=== PATIENT | male | born 1985 | race Caucasian/White ===

== ENCOUNTER 2017-12-07 14:05 | Emergency (ER) | payer OTHER ==
[2017-12-07] MEDS ORDERED: ONDANSETRON HCL INJ/PF 4 MG/2 ML SDV IV ONE (15:59)
[2017-12-07] MEDS ORDERED: NORMAL SALINE 1000 ML 1,000 ML IV ONE (15:59)
[2017-12-07] MEDS ORDERED: MORPHINE SULFATE 10 MG/ML INJ IV ONE (15:59)
--- NOTE | 2017-12-07 16:00 | ER Document Report ---
ED Medical Screen (RME) - General Chief Complaint: Abdominal Pain Stated Complaint: ABDOMINAL PAIN Time Seen by Provider: 12/07/17 15:58 Notes: pt has one day of bilat lq abdominal pain with vomiting TRAVEL OUTSIDE OF THE [place] IN LAST 30 DAYS: No - Related Data Allergies/Adverse Reactions: No Known Allergies Allergy (Unverified 12/07/17 14:15) Past Medical History - Social History Chew tobacco use (# tins/day): No Frequency of alcohol use: None Drug Abuse: None Renal/ Medical History: Denies: Hx Peritoneal Dialysis GI Medical History: Reports: Hx Ulcer - Immunizations Hx Diphtheria, Pertussis, Tetanus Vaccination: Yes Physical Exam - Vital signs Vitals: Temp Pulse Resp BP Pulse Ox 99.3 F 89 22 H 122/73 96 12/07/17 14:32 12/07/17 14:32 12/07/17 14:32 12/07/17 14:32 12/07/17 14:32 Course - Vital Signs Vital signs: Temp Pulse Resp BP Pulse Ox 99.3 F 89 22 H 122/73 96 12/07/17 14:32 12/07/17 14:32 12/07/17 14:32 12/07/17 14:32 12/07/17 14:32
--- NOTE | 2017-12-07 16:58 | RADIOLOGY REPORT (SQ) ---
EXAM DESCRIPTION: CT ABD/PELVIS WITH IV ONLY COMPLETED DATE/TIME: 12/07/2017 4:42 pm REASON FOR STUDY: bilat lq pain/vomiting COMPARISON: None. TECHNIQUE: CT scan of the abdomen and pelvis performed using helical scanning technique with dynamic intravenous contrast injection. No oral contrast. Images reviewed with lung, soft tissue, and bone windows. Reconstructed coronal and sagittal MPR images reviewed. Delayed images for evaluation of the urinary system also acquired. All images stored on PACS. All CT scanners at this facility use dose modulation, iterative reconstruction, and/or weight based d osing when appropriate to reduce radiation dose to as low as reasonably achievable (ALARA). [facility]: Dose Right [facility]: CareDose [facility]: Dose Right [facility]: Teradose 4D [facility]: MedPageToday CONTRAST TYPE AND DOSE: contrast/concentration: Isovue 370.00 mg/ml; Total Contrast Delivered: 100.0 ml; Total Saline Delivered: 70.0 ml RENAL FUNCTION: None required. The patient is less than 50 years old. RADIATION DOSE: CT Rad equipment meets quality standard of care and radiation dose reduction techniq ues were employed. CTDIvol: 19.8 - 20.5 mGy. DLP: 2416 mGy-cm.. LIMITATIONS: Patient motion. FINDINGS: LOWER CHEST: No significant findings. No nodules or infiltrates. LIVER: Normal size. No masses. No dilated ducts. SPLEEN: Normal size. No focal lesions. PANCREAS: No masses. No significant calcifications. No adjacent inflammation or peripancreatic fluid collections. Pancreatic duct not dilated. GALLBLADDER: No identified stones by CT criteria. No inflammatory changes to suggest cholecystitis. ADRENAL GLANDS: No significant masses or asymmetry. RIGHT KIDNEY AND URETER: No solid masses. No significant calcifications. No hydronephrosis or hyd roureter. LEFT KIDNEY AND URETER: No solid masses. No significant calcifications. No hydronephrosis or hydr oureter. AORTA AND VESSELS: No aneurysm. RETROPERITONEUM: No retroperitoneal adenopathy, hemorrhage or masses. BOWEL AND PERITONEAL CAVITY: No masses or inflammatory changes. No free fluid or peritoneal masses. APPENDIX: Not visualized. PELVIS: No mass. No free fluid. Normal bladder. ABDOMINAL WALL: Small umbilical hernia. BONES: Approximately 30% height loss at L2. No significant retropulsion. Spondylolysis L5-S1. OTHER: No other significant finding. IMPRESSION: Technical limitations due to patient motion. Compression fracture L2 of uncertain chron icity but probably chronic. Consider follow-up MRI or bone scan when the patient is more stable. TECHNICAL DOCUMENTATION: JOB ID: [id number] Quality ID # [id number]: Final reports with documentation of one or more dose reduction techniques (e.g., Au tomated exposure control, adjustment of the mA and/or kV according to patient size, use of iterative reconstruction technique) 2010 [employer]- All Rights Reserved
[2017-12-07 17:00] LABS: HEMATOCRIT 48.1 % (37.9-51.0); HEMOGLOBIN 16.5 g/dL (13.5-17.0); MEAN CORPUSCULAR HEMOGLOBIN 28.7 pg (27.0-33.4); MEAN CORPUSCULAR HGB CONC 34.3 g/dL (32.0-36.0); MEAN CORPUSCULAR VOLUME 84 fl (80-97); PLATELET COUNT 220 10^3/uL (150-450); RED BLOOD COUNT 5.76 10^6/uL (4.35-5.55); RED CELL DISTRIBUTION WIDTH 12.7 % (11.5-14.0); WHITE BLOOD COUNT 15.2 10^3/uL (4.0-10.5)
[2017-12-07 17:01] LABS: APPEARANCE,URINE CLEAR; BILIRUBIN,URINE NEGATIVE (NEGATIVE); COLOR,URINE YELLOW; GLUCOSE, URINE NEGATIVE (NEGATIVE); KETONES,URINE NEGATIVE (NEGATIVE); LEUKOCYTE ESTERASE,URINE NEGATIVE (NEGATIVE); NITRITE,URINE NEGATIVE (NEGATIVE); PROTEIN,URINE NEGATIVE (NEGATIVE); URINE SPECIFIC GRAVITY 1.034
[2017-12-07 17:16] LABS: ALANINE AMINOTRANSFERASE 38 U/L (21-72); ALBUMIN 4.3 g/dL (3.5-5.0); ALKALINE PHOSPHATASE 103 U/L (38-126); ANION GAP 12 (5-19); ASPARTATE AMINO TRANSFERASE 25 U/L (17-59); BILIRUBIN,DIRECT 0.4 mg/dL (0.0-0.4); BILIRUBIN,TOTAL 1.1 mg/dL (0.2-1.3); BLOOD UREA NITROGEN 22 mg/dL (7-20); CALCIUM 9.9 mg/dL (8.4-10.2); CARBON DIOXIDE 24 mmol/L (22-30); CHLORIDE 104 mmol/L (98-107); GLUCOSE 108 mg/dL (75-110); LIPASE 56.5 U/L (23-300); POTASSIUM 4.5 mmol/L (3.6-5.0); SODIUM 139.8 mmol/L (137-145); TOTAL PROTEIN 7.3 g/dL (6.3-8.2)
[2017-12-07 17:21] LABS: ABSOLUTE LYMPHOCYTES# (MANUAL) 0.8 10^3/uL (0.5-4.7); ABSOLUTE MONOCYTES # (MANUAL) 0.9 10^3/uL (0.1-1.4); ABSOLUTE NEUTROPHILS# (MANUAL) 13.5 10^3/uL (1.7-8.2); BASOPHILS % (MANUAL) 0 % (0-2); EOSINOPHILS % (MANUAL) 0 % (0-6); LYMPHOCYTES % (MANUAL) 5 % (13-45); MONOCYTES % (MANUAL) 6 % (3-13); SEGMENTED NEUTROPHILS % (MAN) 89 % (42-78); TOTAL CELLS COUNTED 100
[2017-12-07 17:22] LABS: PLATELET COMMENT ADEQUATE; TOXIC GRANULATION SLIGHT
[2017-12-07] MEDS ORDERED: RINGERS SOLUTION,LACTATED 1,000 ML IV ONE (19:28)
--- NOTE | 2017-12-07 19:34 | ER Document Report ---
ED General - General Chief Complaint: Abdominal Pain Stated Complaint: ABDOMINAL PAIN Time Seen by Provider: 12/07/17 15:58 Information source: Patient TRAVEL OUTSIDE OF THE [place] IN LAST 30 DAYS: No - HPI Patient complains to provider of: Vomiting diarrhea and abdominal pain Onset: This morning Quality of pain: Cramping Severity: Mild Associated symptoms: Diarrhea, Nausea, Vomiting. denies: Body/muscle aches, Chest pain, Chills, Nonproductive cough, Productive cough, Earache, Fever, Headache, Hoarseness, Hurts to breath, Rhinnorhea, Shortness of breath, Sore throat Relieved by: Denies Similar symptoms previously: No Recently seen / treated by doctor: No Notes: 32-year-old male states that he has had abdominal pain that is diffuse in nature, nausea, vomiting and diarrhea that started this morning at around 7 AM. He states his 2-year-old child has been sick with the same thing in the last few days. Patient denies fevers. - Related Data Allergies/Adverse Reactions: No Known Allergies Allergy (Unverified 12/07/17 14:15) Past Medical History - General Information source: Patient - Social History Smoking Status: Current Every Day Smoker Chew tobacco use (# tins/day): No Frequency of alcohol use: None Drug Abuse: None Lives with: Family Family History: Reviewed & Not Pertinent Patient has suicidal ideation: No Patient has homicidal ideation: No - Past Medical History Cardiac Medical History: Reports: None Pulmonary Medical History: Reports: None EENT Medical History: Reports: None Neurological Medical History: Reports: Other - Lumbar radiculopathy Endocrine Medical History: Reports: None Renal/ Medical History: Reports: None. Denies: Hx Peritoneal Dialysis Malignancy Medical History: Reports None GI Medical History: Reports: Hx Ulcer, Other - Loose stools and fecal incontinence at times due to his lumbar injury Musculoskeltal Medical History: Reports Hx Muscle Weakness - Lateral lower extremities chronic in nature Skin Medical History: Reports Other - Cyst left wrist history of Psychiatric Medical History: Reports: None Traumatic Medical History: Reports: Hx Spine Fracture - L2 fracture Infectious Medical History: Reports: None Past Surgical History: Reports: Other - Movable ganglion cyst left wrist - Immunizations Hx Diphtheria, Pertussis, Tetanus Vaccination: Yes Review of Systems - Review of Systems Constitutional: See HPI EENT: See HPI Cardiovascular: No symptoms reported Respiratory: No symptoms reported Gastrointestinal: See HPI Genitourinary: No symptoms reported Male Genitourinary: No symptoms reported Musculoskeletal: No symptoms reported, See HPI, Back pain - Chronic Skin: No symptoms reported Hematologic/Lymphatic: No symptoms reported Neurological/Psychological: No symptoms reported Physical Exam - Vital signs Vitals: Temp Pulse Resp BP Pulse Ox 99.3 F 89 22 H 122/73 96 12/07/17 14:32 12/07/17 14:32 12/07/17 14:32 12/07/17 14:32 12/07/17 14:32 - Notes Notes: PHYSICAL EXAMINATION: GENERAL: Well-appearing, well-nourished and in no acute distress. HEAD: Atraumatic, normocephalic. EYES: Pupils equal round and reactive to light, extraocular movements intact, sclera anicteric, conjunctiva are normal. ENT: Nares patent, oropharynx clear without exudates. Dry mucous membranes. NECK: Normal range of motion, supple without lymphadenopathy LUNGS: Breath sounds clear to auscultation bilaterally and equal. No wheezes rales or rhonchi. HEART: Regular rate and rhythm without murmurs ABDOMEN: Soft, nontender, nondistended abdomen. No guarding, no rebound. No masses appreciated. Musculoskeletal: Normal range of motion, no pitting or edema. No cyanosis. NEUROLOGICAL: Cranial nerves grossly intact. Normal speech, normal gait. Normal sensory. Mildly decreased bilateral lower extremity muscle strength. PSYCH: Normal mood, normal affect. SKIN: Warm, Dry, normal turgor, no rashes or lesions noted. Course - Re-evaluation Re-evalutation: 12/07/17 19:34 Labs- All tests 24 hr 12/07/17 12/07/17 12/07/17 16:00 16:25 16:25 WBC 15.2 H RBC 5.76 H Hgb 16.5 Hct 48.1 MCV 84 MCH 28.7 MCHC 34.3 RDW 12.7 Plt Count 220 Total Counted 100 Seg Neutrophils % Not Reportable Seg Neuts % (Manual) 89 H Lymphocytes % Not Reportable Lymphocytes % (Manual) 5 L Monocytes % Not Reportable Monocytes % (Manual) 6 Eosinophils % Not Reportable Eosinophils % (Manual) 0 Basophils % Not Reportable Basophils % (Manual) 0 Absolute Neutrophils Not Reportable Abs Neuts (Manual) 13.5 H Absolute Lymphocytes Not Reportable Abs Lymphs (Manual) 0.8 Absolute Monocytes Not Reportable Abs Monocytes (Manual) 0.9 Absolute Eosinophils Not Reportable Absolute Eos (Manual) 0.0 Absolute Basophils Not Reportable Abs Basophils (Manual) 0.0 Toxic Granulation SLIGHT Platelet Comment ADEQUATE Sodium 139.8 Potassium 4.5 Chloride 104 Carbon Dioxide 24 Anion Gap 12 BUN 22 H Creatinine 1.05 Est GFR ( Amer) > 60 Est GFR (Non-Af Amer) > 60 Glucose 108 Calcium 9.9 Total Bilirubin 1.1 Direct Bilirubin 0.4 Neonat Total Bilirubin Not Reportable Neonat Direct Bilirubin Not Reportable Neonat Indirect Bili Not Reportable AST 25 ALT 38 Alkaline Phosphatase 103 Total Protein 7.3 Albumin 4.3 Lipase 56.5 Urine Color YELLOW Urine Appearance CLEAR Urine pH 6.0 Ur Specific [place] 1.034 Urine Protein NEGATIVE Urine Glucose (UA) NEGATIVE Urine Ketones NEGATIVE Urine Blood NEGATIVE Urine Nitrite NEGATIVE Urine Bilirubin NEGATIVE Urine Urobilinogen 2.0 H Ur Leukocyte Esterase NEGATIVE Urine WBC (Auto) 1 Urine RBC (Auto) 1 Urine Mucus (Auto) FEW Urine Ascorbic Acid NEGATIVE Abdomen/Pelvis CT 12/07/17 15:58 IMPRESSION: Technical limitations due to patient motion. Compression fracture L2 of uncertain chronicity but probably chronic. Consider follow-up MRI or bone scan when the patient is more stable. 12/07/17 19:35 Did discuss patient's CAT scan findings with him. I told him that appendicitis was not completely ruled out as the appendix was not visualized. I told him that his clinical examination and his CT does not point in that direction however return to the emergency department if he has high fevers right lower quadrant pain intractable vomiting or any other concerns. 12/07/17 20:40 PT. tolerated 2 cans of james edmundo without difficulty - Vital Signs Vital signs: Temp Pulse Resp BP Pulse Ox 97.8 F 86 18 107/65 97 12/07/17 19:35 12/07/17 19:35 12/07/17 19:35 12/07/17 19:35 12/07/17 19:35 - Laboratory Result Diagrams: 12/07/17 16:25 12/07/17 16:25 Laboratory results interpreted by me: 12/07/17 12/07/17 12/07/17 16:00 16:25 16:25 WBC 15.2 H RBC 5.76 H Seg Neuts % (Manual) 89 H Lymphocytes % (Manual) 5 L Abs Neuts (Manual) 13.5 H BUN 22 H Urine Urobilinogen 2.0 H Discharge - Discharge Clinical Impression: Abdominal pain, Vomiting, Diarrhea Disposition: HOME, SELF-CARE Instructions: Abdominal Pain ([facility]), Antinausea Medication ([facility]), Diarrhea, Nonspecific ([facility]), Intravenous (IV) Fluids ([facility]), Vomiting ([facility]) Additional Instructions: Follow up with your physician tomorrow for further care or return to the ED IMMEDIATELY if symptoms worsen or new concerns occur. If you cannot afford to follow up with your primary care physician a list of low cost clinics have been provided at the end of your discharge papers as well. We discussed the CAT scan today did not visualize her appendix. It did not show any inflammation or signs of an appendicitis either. If you have pain that localizes to the right lower portion of your abdomen or if you have high fevers or vomiting that will not stop please return to the emergency department immediately. Prescriptions: Ondansetron [Zofran Odt 4 mg Tablet] 1 - 2 tab PO Q4H PRN #15 tab.rapdis PRN Reason: For Nausea/Vomiting
[2017-12-07 22:07] VITALS: BP 118/68
== END 2017-12-07 21:49 | disposition home or self-care (01) ==
LOC: ER 14:05
DX: R10.9 Unspecified abdominal pain (principal); R11.2 Nausea with vomiting, unspecified; R19.7 Diarrhea, unspecified; F17.200 Nicotine dependence, unspecified, uncomplicated
CPT/HCPCS: 99284; 96361; 96374; 96375; 36415; 83690; 85025; 80053; 81001; 74177; J2270; J2405; J7030; J7120

== ENCOUNTER 2018-09-25 18:10 | Emergency (ER) | payer OTHER ==
[2018-09-25 18:29] VITALS: BP 117/65
--- NOTE | 2018-09-25 19:52 | RADIOLOGY REPORT (SQ) ---
EXAM DESCRIPTION: CHEST 2 VIEWS COMPLETED DATE/TIME: 09/25/2018 7:27 pm REASON FOR STUDY: cough congestion COMPARISON: None. EXAM PARAMETERS: NUMBER OF VIEWS: two views TECHNIQUE: Digital Frontal and Lateral radiographic views of the chest acquired. RADIATION DOSE: NA LIMITATIONS: none FINDINGS: LUNGS AND PLEURA: No opacities, masses or pneumothorax. No pleural effusion. MEDIASTINUM AND HILAR STRUCTURES: No masses or contour abnormalities. HEART AND VASCULAR STRUCTURES: Heart normal size. No evidence for failure. BONES: No acute findings. HARDWARE: None in the chest. OTHER: No other significant finding. IMPRESSION: NO ACUTE RADIOGRAPHIC FINDING IN THE CHEST. TECHNICAL DOCUMENTATION: JOB ID: [id number] [employer]- All Rights Reserved Reading location - IP/workstation name: [email or web address]
[2018-09-25] MEDS ORDERED: IBUPROFEN 800 MG TABLET PO ONE (20:07)
[2018-09-25] MEDS ORDERED: GUAIFENESIN 600 MG TABLET.SA PO ONE (20:07)
[2018-09-25] MEDS ORDERED: LORATADINE 10 MG TABLET PO ONE (20:07)
[2018-09-25] MEDS ORDERED: PSEUDOEPHEDRINE HCL 30 MG TABLET PO ONE (20:07)
--- NOTE | 2018-09-25 20:09 | ER Document Report ---
ED Flu Like - General Chief Complaint: Flu Symptoms Stated Complaint: FLU LIKE SYMPTOMS Time Seen by Provider: 09/25/18 19:01 Mode of Arrival: Ambulatory Information source: Patient Notes: 33-year-old male presents to ED for cough cold congestion sore throat headache and some breath for the last 2-3 days. He does not remember any fevers. He states he does have some cough and discomfort when he coughs in his chest. He also has body aches. TRAVEL OUTSIDE OF THE [place] IN LAST 30 DAYS: No - HPI Onset: Other - 2-3 days Timing/Duration: Persistent Quality of pain: Achy Severity: Moderate Pain Level: 3 Associated symptoms: Body/muscle aches, Nonproductive cough, Fever, Headache, Rhinnorhea, Sinus pain/drainage Similar symptoms previously: Yes Recently seen / treated by doctor: No - Related Data Allergies/Adverse Reactions: No Known Allergies Allergy (Unverified 12/07/17 14:15) Past Medical History - General Information source: Patient - Social History Smoking Status: Never Smoker Cigarette use (# per day): No Chew tobacco use (# tins/day): No Smoking Education Provided: No Frequency of alcohol use: None Drug Abuse: None Lives with: Family Family History: Reviewed & Not Pertinent Patient has suicidal ideation: No Patient has homicidal ideation: No - Past Medical History Cardiac Medical History: Reports: Hx Hypertension Pulmonary Medical History: Reports: None EENT Medical History: Reports: None Neurological Medical History: Reports: None Endocrine Medical History: Reports: None Renal/ Medical History: Reports: None Malignancy Medical History: Reports None GI Medical History: Reports: Hx Ulcer Musculoskeletal Medical History: Reports Hx Muscle Weakness - Lateral lower extremities chronic in nature Skin Medical History: Reports None Psychiatric Medical History: Reports: None Traumatic Medical History: Reports: Hx Spine Fracture - L2 fracture Infectious Medical History: Reports: None Past Surgical History: Reports: Other - Movable ganglion cyst left wrist - Immunizations Hx Diphtheria, Pertussis, Tetanus Vaccination: Yes Review of Systems - Review of Systems Notes: REVIEW OF SYSTEMS: CONSTITUTIONAL : Denies fever, chills, or sweats. EENT: Complains of runny nose body aches chills headache cough and shortness of breath for 2-3 days CARDIOVASCULAR: Denies chest pain. Denies palpitations or racing or irregular heart beat. Denies ankle edema. RESPIRATORY: Patient complains of cough cold congestion short of breath and discomfort with cough GASTROINTESTINAL: Denies abdominal pain or distention. Denies nausea, vomiting , or diarrhea. Denies blood in vomitus, stools, or per rectum. Denies black, tarry stools. Denies constipation. GENITOURINARY: Denies difficulty urinating, painful urination, burning, frequency, blood in urine, or discharge. MUSCULOSKELETAL: Denies back or neck pain or stiffness. Denies joint pain or swelling. SKIN: Denies rash, lesions or sores. HEMATOLOGIC : Denies easy bruising or bleeding. LYMPHATIC: Denies swollen, enlarged glands. NEUROLOGICAL: Denies confusion or altered mental status. Denies passing out or loss of consciousness. Denies dizziness or lightheadedness. Denies headache. Denies weakness or paralysis or loss of use of either side. Denies problems with gait or speech. Denies sensory loss, numbness, or tingling. Denies seizures. PSYCHIATRIC: Denies anxiety or stress. Denies depression, suicidal ideation, or homicidal ideation. ALL OTHER SYSTEMS REVIEWED AND NEGATIVE. Dictation was performed using [employer] voice recognition software PHYSICAL EXAMINATION: GENERAL: Well-appearing, well-nourished and in no acute distress. HEAD: Atraumatic, normocephalic. EYES: Pupils equal round and reactive to light, extraocular movements intact, sclera anicteric, conjunctiva are normal. ENT: Nares patent, oropharynx clear without exudates. Moist mucous membranes. NECK: Normal range of motion, supple without lymphadenopathy LUNGS: Patient had some rhonchi and wheezes when I first examined him. I had him cough good and it cleared up most of the rhonchi and wheezes. Chest x-ray was clear. HEART: Regular rate and rhythm without murmurs ABDOMEN: Soft, nontender, nondistended abdomen. No guarding, no rebound. No masses appreciated. Musculoskeletal: Normal range of motion, no pitting or edema. No cyanosis. NEUROLOGICAL: Cranial nerves grossly intact. Normal speech, normal gait. Normal sensory, motor exams PSYCH: Normal mood, normal affect. SKIN: Warm, Dry, normal turgor, no rashes or lesions noted. Physical Exam - Vital signs Vitals: Temp Pulse Resp BP Pulse Ox 98.4 F 83 20 117/65 95 09/25/18 18:28 09/25/18 18:28 09/25/18 18:28 09/25/18 18:28 09/25/18 18:28 Course - Re-evaluation Re-evalutation: 09/25/18 20:09 After performing a Medical Screening Examination, I estimate there is LOW risk for ACUTE CORONARY SYNDROME, RESPIRATORY FAILURE, SEPSIS OR MENINGITIS, thus I consider the discharge disposition reasonable. I have reevaluated this patient multiple times and no significant life threatening changes are noted. The patient and I have discussed the diagnosis and risks, and we agree with discharging home with close follow-up. We also discussed returning to the Emergency Department immediately if new or worsening symptoms occur. We have discussed the symptoms which are most concerning (e.g., changing or worsening pain, trouble swallowing or breathing, neck stiffness, fever) that necessitate immediate return. - Vital Signs Vital signs: Temp Pulse Resp BP Pulse Ox 98.4 F 83 20 117/65 95 09/25/18 18:28 09/25/18 18:28 09/25/18 18:28 09/25/18 18:28 09/25/18 18:28 - Diagnostic Test Radiology reviewed: Image reviewed, Reports reviewed Discharge - Discharge Clinical Impression: Sore throat (viral) URI (upper respiratory infection) Qualifiers: URI type: unspecified URI Qualified Code(s): J06.9 - Acute upper respiratory infection, unspecified Condition: Good Disposition: HOME, SELF-CARE Instructions: Family Physicians / Practices Additional Instructions: UPPER RESPIRATORY ILLNESS: You have a viral infection of the respiratory passages -- a "cold." This common infection causes nasal congestion, drainage, and often sore throat and cough. It is highly contagious. The disease usually lasts about 10 to 14 days. There is no "cure" for the viral infection -- it must run its course. If there is a complication, such as bacterial infection in the nose, sinuses, middle ear, or bronchial tubes, antibiotics may be required. The antibiotics won't affect the virus. Drink plenty of fluids. A humidifier may help. An expectorant medication or decongestant may make you more comfortable. Use acetaminophen or ibuprofen for fever or aches. See the doctor if fever persists over two days, if there is any significant worsening of your symptoms, or if you simply fail to improve as expected. COUGH-SUPPRESSANT & EXPECTORANT MEDICATION: You are to use a cough medication as needed for relief of symptoms. This medicine is a combination of an expectorant (to make the mucous thinner and more easily "coughed up") and a cough suppressant (to reduce the frequency of coughing). The cough-suppressant medicine is related to narcotics. You may experience mild nausea and sleepiness. Some patients who are very sensitive to narcotics may have stomach pain from this medicine. Taking the medicine with food reduces these side effects. Do not drive or work with machinery until you know how this medicine affects you. The expectorant should have no side effects. Iodine-containing expectorants (such as organidin) should not be taken by persons with active thyroid disease unless approved by your doctor. Call the doctor if you develop shortness of breath, hives, rash, itching, lightheadedness, or severe nausea and vomiting. USE OF ACETAMINOPHEN (Tylenol): Acetaminophen may be taken for pain relief or fever control. It's much safer than aspirin, offering a wider range of "safe" dosages. It is safe during . Some brand names are Tylenol, Panadol, Datril, Anacin 3, Tempra, and Liquiprin. Acetaminophen can be repeated every four hours. The following are maximum recommended dosages: >89 pounds or adults 650 mg to 900 mg Acetaminophen can be repeated every four hours. Maximum dose not to exceed 4000 mg a day. Chest x-ray and strep test were both negative for any acute illness. I have given you a written report of the results of both. You have been treated with Claritin 10 mg, Sudafed 30 mg, Mucinex 600 mg, and ibuprofen 800 mg, in the emergency room for your cough cold congestion is. Other medications that might help your Flonase which is [id number] follow the box instructions, and salt and soda solution gargles to help with your sore throat. Chloraseptic spray can also help with your sore throat. Salt and soda solution 1 quart of water 1 tablespoon of salt 1 teaspoon of baking soda Mixed 3 ingredients together and boil for 1 minute Placed in a covered quart jar Use 1/2 ounce of cold solution to gargle 3 times a day FOLLOW-UP CARE: If you have been referred to a physician for follow-up care, call the physician s office for an appointment as you were instructed or within the next two days. If you experience worsening or a significant change in your symptoms, notify the physician immediately or return to the Emergency Department at any time for re-evaluation.
== END 2018-09-25 20:38 | disposition home or self-care (01) ==
LOC: ER 18:10
DX: J02.8 Acute pharyngitis due to other specified organisms (principal); B97.89 Other viral agents as the cause of diseases classified elsewhere; R05 Cough; R51 Headache; M79.10 Myalgia, unspecified site; J34.89 Other specified disorders of nose and nasal sinuses; R09.89 Other specified symptoms and signs involving the circulatory and respiratory systems; R68.83 Chills (without fever); R06.02 Shortness of breath; R06.2 Wheezing; I10 Essential (primary) hypertension
CPT/HCPCS: 71046; 87070; 87880; 99284

== ENCOUNTER 2019-04-12 04:05 | Emergency (ER) | payer OTHER ==
[2019-04-12 05:59] LABS: ABSOLUTE EOSINOPHILS # (AUTO) 0.1 10^3/uL (0.0-0.6); ABSOLUTE LYMPHOCYTES (AUTO) 1.7 10^3/uL (0.5-4.7); ABSOLUTE NEUT (AUTO) 12.7 10^3/uL (1.7-8.2); BASOPHILS % (AUTO) 0.2 % (0-2); EOSINOPHILS % (AUTO) 0.9 % (0-6); HEMATOCRIT 42.4 % (37.9-51.0); HEMOGLOBIN 14.7 g/dL (13.5-17.0); LYMPHOCYTES % (AUTO) 10.9 % (13-45); MEAN CORPUSCULAR HEMOGLOBIN 28.8 pg (27.0-33.4); MEAN CORPUSCULAR HGB CONC 34.6 g/dL (32.0-36.0); MEAN CORPUSCULAR VOLUME 83 fl (80-97); MONOCYTES % (AUTO) 6.3 % (3-13); PLATELET COUNT 210 10^3/uL (150-450); RED CELL DISTRIBUTION WIDTH 13.1 % (11.5-14.0); SEGMENTED NEUTROPHILS % (AUTO) 81.7 % (42-78); TOTAL CELLS COUNTED % (AUTO) 100 %; WHITE BLOOD COUNT 15.5 10^3/uL (4.0-10.5)
[2019-04-12 06:12] LABS: ALANINE AMINOTRANSFERASE 40 U/L (21-72); ALBUMIN 4.3 g/dL (3.5-5.0); ALKALINE PHOSPHATASE 108 U/L (38-126); ANION GAP 11 (5-19); ASPARTATE AMINO TRANSFERASE 27 U/L (17-59); BILIRUBIN,DIRECT 0.2 mg/dL (0.0-0.4); BILIRUBIN,TOTAL 0.7 mg/dL (0.2-1.3); BLOOD UREA NITROGEN 13 mg/dL (7-20); CALCIUM 9.2 mg/dL (8.4-10.2); CARBON DIOXIDE 25 mmol/L (22-30); CHLORIDE 103 mmol/L (98-107); GLUCOSE 99 mg/dL (75-110); POTASSIUM 4.1 mmol/L (3.6-5.0); SODIUM 139.3 mmol/L (137-145); TOTAL PROTEIN 7.3 g/dL (6.3-8.2)
[2019-04-12] MEDS ORDERED: METHYLPREDNISOLONE INJ 125 MG/2 ML SDV IV ONE (06:36)
[2019-04-12] MEDS ORDERED: ONDANSETRON HCL INJ/PF 4 MG/2 ML SDV IV ONE (06:36)
[2019-04-12] MEDS ORDERED: KETOROLAC TROMETHAMINE INJ/PF 30 MG/1 ML SDV IV ONE (06:36)
[2019-04-12] MEDS: NORMAL SALINE 1000 ML 1,000 ML IV PRN ×2 (06:46→07:15)
[2019-04-12 06:50] LABS: CREATINE KINASE 130 U/L (55-170)
--- NOTE | 2019-04-12 06:58 | ER Document Report ---
Entered by KELLI CALVERT SCRIBE 04/12/19 0652 Acting as scribe for:JOSHUA LOZOYA MD ED General - General Chief Complaint: Vomiting Stated Complaint: SICKNESS Time Seen by Provider: 04/12/19 06:24 Primary Care Provider: RONNY,JASON [Primary Care Provider] - Follow up as needed Mode of Arrival: Ambulatory Information source: Patient Notes: Patient is a 33 year old male with HTN presents to the emergency department complaining of nausea, vomiting and sore throat. Patient states he developed a sore throat 2 days ago and developed nausea and vomiting this morning. He also complains of abdominal pain onset after the vomiting and mild fevers. Patient states he was told he had gastric ulcers but reports having yet to follow up. Patient is currently not on any medications. TRAVEL OUTSIDE OF THE [place] IN LAST 30 DAYS: No - Related Data Allergies/Adverse Reactions: No Known Allergies Allergy (Unverified 12/07/17 14:15) Past Medical History - General Information source: Patient - Social History Smoking Status: Never Smoker Cigarette use (# per day): No Chew tobacco use (# tins/day): No Smoking Education Provided: No Frequency of alcohol use: None Family History: Reviewed & Not Pertinent - Past Medical History Cardiac Medical History: Reports: Hx Hypertension GI Medical History: Reports: Hx Ulcer Musculoskeletal Medical History: Reports Hx Muscle Weakness - Lateral LE, chronic in nature reports a neuromuscular disorder Traumatic Medical History: Reports: Hx Spine Fracture - L2 fracture Past Surgical History: Reports: Other - Movable ganglion cyst left wrist - Immunizations Hx Diphtheria, Pertussis, Tetanus Vaccination: Yes Review of Systems - Review of Systems Constitutional: No symptoms reported EENT: See HPI, Throat pain Cardiovascular: No symptoms reported Respiratory: No symptoms reported Gastrointestinal: See HPI, Abdominal pain, Nausea, Vomiting Genitourinary: No symptoms reported Male Genitourinary: No symptoms reported Musculoskeletal: No symptoms reported Skin: No symptoms reported Hematologic/Lymphatic: No symptoms reported Neurological/Psychological: No symptoms reported -: Yes All other systems reviewed and negative Physical Exam - Vital signs Vitals: Temp Pulse Resp BP Pulse Ox 98.7 F 115 H 16 129/74 H 92 04/12/19 04:11 04/12/19 04:11 04/12/19 04:11 04/12/19 04:11 04/12/19 04:11 - Notes Notes: GENERAL: Alert, interacts well. No acute distress. HEAD: Normocephalic, atraumatic. EYES: Pupils equal, round, and reactive to light. Extraocular movements intact. ENT: Oral mucosa dry, tongue midline. Mild erythema to the posterior oropharynx, no swelling or exudate. NECK: Full range of motion. Supple. Trachea midline. Anterior lymphnodes are tender to palpation, no swelling. LUNGS: Clear to auscultation bilaterally, no wheezes, rales, or rhonchi. No respiratory distress. HEART: Regular rate and rhythm. No murmurs, gallops, or rubs. ABDOMEN: Soft, non-tender. Non-distended. Bowel sounds present in all 4 quadrants. No guarding, rigidity, or rebound. EXTREMITIES: Moves all 4 extremities spontaneously. No edema, radial and dorsalis pedis pulses 2/4 bilaterally. No cyanosis. NEUROLOGICAL: Alert and oriented x3. Normal speech. PSYCH: Normal affect, normal mood. SKIN: Warm, dry, normal turgor. No rashes or lesions noted. Course - Re-evaluation Re-evalutation: 04/12/19 08:54 Patient has been sleeping. He is feeling better. His showed up, states that the nausea and vomiting has been "going around" in the house. He reports that he has been doing a lot of coughing along with his sore throat. Also reports he normally has insomnia. Patient's rapid strep is negative. - Vital Signs Vital signs: Temp Pulse Resp BP Pulse Ox 98.7 F 115 H 16 129/74 H 92 04/12/19 04:11 04/12/19 04:11 04/12/19 04:11 04/12/19 04:11 04/12/19 04:11 - Laboratory Result Diagrams: 04/12/19 05:43 04/12/19 05:43 Laboratory results interpreted by me: 04/12/19 05:43 WBC 15.5 H Seg Neutrophils % 81.7 H Lymphocytes % 10.9 L Absolute Neutrophils 12.7 H Discharge - Discharge Clinical Impression: Sore throat Nausea and vomiting Qualifiers: Vomiting type: unspecified Vomiting Intractability: non-intractable Qualified Code(s): R11.2 - Nausea with vomiting, unspecified Condition: Stable Disposition: HOME, SELF-CARE Additional Instructions: Nausea or Vomiting, Nonspecific Vomiting (or nausea without vomiting) can be caused by many different problems. Of course, it can mean that something's wrong with the stomach, such as "stomach flu," ulcers, or inflammation. But it can also be a symptom of a problem that has nothing to do with the stomach or intestines. Vomiting is common with severe headaches, earaches, and tonsillitis. We see it with pneu monia or heart attacks. Drugs can cause nausea. Many abdominal problems cause vomiting; for example, gallstones, kidney stones, pancreatitis, and intestinal obstruction (blocked bowels). In most cases, curing the vomiting depends on fixing the problem that caused it. For temporary relief, we may use an anti-nausea medicine. For home use, we can prescribe suppositories, chewable pills, pills that dissolve in the mouth, or liquid anti-nausea drugs. If the vomiting seems to be caused by a prob baltazar in the stomach, acid-suppressing drugs may be prescribed as well. It's important to avoid dehydration. Sip clear liquids. Take increasing amounts of fluid over the first 24 hours. Then start small amounts of bland foods (such as dry toast, applesauce, mashed potato). Avoid aspirin, tobacco, and alcohol. Gradually resume your usual diet. If the vomiting worsens, if the problem that's making you vomit worsens, or if there's evidence of bleeding in the stomach (such as black, tarry stool, bloody or black vomit, or lightheadedness), you should return immediately. Call your doctor if you aren't improved in 24 to 36 hours. Sore Throat Sore throats may be caused by viruses, bacteria, or fungi. Most are due to a virus, and must get better on their own. Bacterial sore throats, particularly those due to "strep," need treatment with antibiotics. If an antibiotic is prescribed, be sure to take the medication for a full 10 days. Failure to take the antibiotic can result in complications such as rheumatic fever. Sometimes, an injection of antibiotics is given instead of pills or liquid. This single "shot" is equal in effectiveness to the oral medication. To relieve symptoms, take acetaminophen for pain. Sip clear liquids frequently, or eat popsicles or ice chips. Anesthetic sprays or lozenges may help. Make sure the air in the room is not too dry. Avoid using decongestants or antihistamines. Call the doctor if there is no improvement in two days, or if you have difficulty breathing, increasing throat pain, high fever, rash, or frequent vomiting. Take the medications as prescribed for nausea. Drink plenty of cool clear liquids throughout the day in the evening. Get plenty of rest and sleep. Follow-up with a primary care provider if not improving. RETURN TO THE EMERGENCY ROOM IF ANY NEW OR WORSENING SYMPTOMS. Prescriptions: Ondansetron [Zofran Odt 4 mg Tablet] 1 - 2 tab PO Q4H #10 tab.rapdis [facility]errals: [facility] [Primary [facility] Provider] - Follow up as needed Scribe Attestation: 04/12/19 07:42 I personally performed the services described in the documentation, reviewed and edited the documentation which was dictated to the scribe in my presence, and it accurately records my words and actions. I personally performed the services described in the documentation, reviewed and edited the documentation which was dictated to the scribe in my presence, and it accurately records my words and actions.
[2019-04-12 08:17] LABS: APPEARANCE,URINE CLEAR; BILIRUBIN,URINE NEGATIVE (NEGATIVE); COLOR,URINE YELLOW; GLUCOSE, URINE NEGATIVE (NEGATIVE); KETONES,URINE NEGATIVE (NEGATIVE); LEUKOCYTE ESTERASE,URINE NEGATIVE (NEGATIVE); NITRITE,URINE NEGATIVE (NEGATIVE); PROTEIN,URINE NEGATIVE (NEGATIVE); URINE SPECIFIC GRAVITY 1.021; UROBILINOGEN,URINE NEGATIVE mg/dL (<2.0)
[2019-04-12] MEDS ORDERED: ONDANSETRON ODT 4 MG TAB (6 TAB/ER DISP) PO PRN (08:57)
[2019-04-12 09:49] VITALS: BP 116/63
== END 2019-04-12 09:56 | disposition home or self-care (01) ==
LOC: ER 04:05
DX: J02.9 Acute pharyngitis, unspecified (principal); R11.2 Nausea with vomiting, unspecified; R10.9 Unspecified abdominal pain; I10 Essential (primary) hypertension
CPT/HCPCS: 99283; 96361; 96374; 96375; 36415; 82550; 85025; 80053; 81001; J2930; J1885; J2405; J7030

== ENCOUNTER 2019-05-17 19:32 | Emergency (ER) | payer OTHER ==
[2019-05-17] MEDS ORDERED: ACETAMINOPHEN 325 MG TABLET PO ONE (19:42)
--- NOTE | 2019-05-17 20:36 | RADIOLOGY REPORT (SQ) ---
EXAM DESCRIPTION: XR KNEE 1-2 VIEWS COMPLETED DATE/TME: 05/17/2019 00:00 CLINICAL HISTORY: 34 years, Male, bone tenderness COMPARISON: None. NUMBER OF VIEWS: Two TECHNIQUE: One AP and one lateral view of the right joint LIMITATIONS: None. FINDINGS: Knee joint alignment is maintained. No fracture. No focal osseous lesion. No suprapatellar joint effusion. Soft tissues are appear within normal limits. IMPRESSION: No acute osseous finding of the right. copyright 2010 [employer]- All Rights Reserved
--- NOTE | 2019-05-17 21:17 | RADIOLOGY REPORT (SQ) ---
EXAM DESCRIPTION: CLINICAL HISTORY: 34 years Male, bone tenderness COMPARISON: None. FINDINGS: There are two separate fractures of the distal shaft of the right fibula. Associated with moderate deformity of the distal distal tibia is unremarkable. No suspicious findings in the right ankle. Fibula. IMPRESSION: Two separate fractures of the distal right fibula with moderate deformity. Ankle mortise is intact.
[2019-05-17] MEDS ORDERED: HYDROCODONE/ACETAMINOPHEN 5-325 MG TABLET PO ONE (23:04)
--- NOTE | 2019-05-18 00:44 | ER Document Report ---
ED General - General Chief Complaint: Knee Injury Stated Complaint: RIGHT KNEE AND ANKLE INJURY Time Seen by Provider: 05/17/19 22:52 Primary Care Provider: LILIBETH REED MD [ACTIVE PROVISIONAL STAFF] - 05/21/19 Notes: Patient is a pleasant 34-year-old male who presents with complaints of pain into the right lower leg. Patient says she was stepping off a truck in his leg bent sideways and his sudden onset of pain into his right lower leg. He denies any weakness or numbness into his foot. He started reporting new medications. He denies any other injuries or pain. TRAVEL OUTSIDE OF THE [place] IN LAST 30 DAYS: No - Related Data Allergies/Adverse Reactions: No Known Allergies Allergy (Unverified 12/07/17 14:15) Past Medical History - Social History Smoking Status: Unknown if Ever Smoked Frequency of alcohol use: None Drug Abuse: None Family History: Reviewed & Not Pertinent Patient has suicidal ideation: No Patient has homicidal ideation: No - Past Medical History Cardiac Medical History: Reports: Hx Hypertension Renal/ Medical History: Denies: Hx Peritoneal Dialysis GI Medical History: Reports: Hx Ulcer Musculoskeletal Medical History: Reports Hx Muscle Weakness - Lateral LE, chronic in nature reports a neuromuscular disorder Traumatic Medical History: Reports: Hx Spine Fracture - L2 fracture Past Surgical History: Reports: Hx Orthopedic Surgery, Other - Movable ganglion cyst left wrist - Immunizations Hx Diphtheria, Pertussis, Tetanus Vaccination: Yes Review of Systems - Review of Systems Notes: My Normal Review Basic REVIEW OF SYSTEMS: CONSTITUTIONAL : Denies fever, chills, or sweats. Denies recent illness. MUSCULOSKELETAL: Right lower leg pain SKIN: Denies rash or skin lesions. HEMATOLOGIC : Denies easy bruising or bleeding. NEUROLOGICAL: Denies sensory or motor loss. ALL OTHER SYSTEMS REVIEWED AND NEGATIVE. Physical Exam - Vital signs Vitals: Temp Pulse Resp BP Pulse Ox 97.9 F 74 18 120/79 97 05/17/19 20:01 05/17/19 20:01 05/17/19 20:01 05/17/19 20:01 05/17/19 20:01 - Notes Notes: General Appearance: Well nourished, alert, cooperative, no acute distress, no obvious discomfort. Vitals: reviewed, See vital signs table. Eyes: PERRL, EOMI, Conjuctiva clear Mouth: No decreasd moisture Lungs: No wheezing, No rales, No rhonci, No accessory muscle use, good air exchange bilaterally. Heart: Normal rate, Regular rythm, No murmur, no rub Extremities: good pulses in all extremities, patient has pain to palpation of the right lower extremity. He has a small swelling to right lower extremity. There is no tightness or firmness to the compartments. All compartments are soft. He has good capillary refill. Distal pulses. Patient is able to plantar and dorsiflexion of his right foot without difficulty. Distal sensation in the right foot. Skin: warm, dry, appropriate color, no rash Neuro: speech clear, oriented x 3, normal affect, responds appropriately to questions. Course - Re-evaluation Re-evalutation: 05/18/19 00:43 Patient has what appears to be a comminuted fibula fracture. I did discuss the case with orthopedist, Dr. Reed, does recommend splinting and close follow-up in his office. Patient's compartments are soft. He has good distal sensation blood flow to his foot. After splint placement he still is good cap refill and says the splint feels comfortable. I informed him the importance of following up with Dr. Reed this coming week. I encouraged him to return to ER immediately if he has any signs of compartment syndrome and I did review the signs and symptoms of compartment syndrome with him. Patient is agreeable plan will be discharged home. Dictation of this chart was performed using voice recognition software; therefore, there may be some unintended grammatical errors. - Vital Signs Vital signs: Temp Pulse Resp BP Pulse Ox 98.5 F 85 18 129/78 H 98 05/18/19 01:02 05/18/19 01:02 05/17/19 20:01 05/18/19 01:02 05/18/19 01:02 Procedures - Immobilization right leg Pre-Proc Neuro Vasc Exam: Normal Immobilizer type: Long leg posterior, Sugar tong Performed by: PCT Post-Proc Neuro Vasc Exam: Normal Discharge - Discharge Clinical Impression: Fibula fracture Qualifiers: Encounter type: initial encounter Fibula location: shaft Fracture type: closed Fracture morphology: comminuted Fracture alignment: displaced Laterality: right Qualified Code(s): S82.451A - Displaced comminuted fracture of shaft of right fibula, initial encounter for closed fracture Condition: Good Disposition: HOME, SELF-CARE Additional Instructions: Your splint has an Brayan wrap around it. Sometimes you can have increased swelling in your arm which will cause a splint to be too tight. Please loosen the Brayan wrap around the splint if you start having any increasing pain or swelling or numbness into your hand. Please return to ER immediately if you continue have these symptoms despite loosening the splint. I discussed with you signs and symptoms of compartment syndrome. This is when you get swelling in the muscle compartments of the leg. This is an emergent condition that you must return to the ER immediately for. Signs of this condition would be severe pain in your leg, numbness into your foot, or if the leg feels tight to touch or firm to touch. Please call Dr. Reed's office this morning to make a close follow- up appointment for this coming week for reevaluation and to discuss possible outpatient surgical options. I have prescribed you a stronger pain medicine for when your pain is more intense. This pain medicine is called [place]. Please be aware that [place] does have Tylenol (acetaminophen) in it. Please make sure you do not take more than 4000 mg of acetaminophen a day. Do not drive or care for children after you have taken this medication they will make you sleepy and sometimes impair judgment. Prescriptions: Hydrocodone/Acetaminophen [[place] 5-325 mg Tablet] 1 tab PO Q4 PRN #12 tablet PRN Reason: For Breakthrough Pain Forms: Special Work Note, Return to Work Referrals: LILIBETH REED MD [ACTIVE PROVISIONAL STAFF] - 05/21/19
[2019-05-18 01:09] VITALS: BP 129/78
== END 2019-05-18 01:20 | disposition home or self-care (01) ==
LOC: ER 19:32
PROC: 2W3LX1Z Immobilization of Right Lower Extremity using Splint (ICD-10-PCS; principal; 2019-05-17)
DX: S82.451A Displaced comminuted fracture of shaft of right fibula, initial encounter for closed fracture (principal); M79.601 Pain in right arm; X50.1XXA Overexertion from prolonged static or awkward postures, initial encounter; I10 Essential (primary) hypertension
CPT/HCPCS: 99283

== ENCOUNTER 2019-08-16 09:25 | Emergency (ER) | payer OTHER ==
[2019-08-16 09:40] VITALS: BP 121/74
[2019-08-16] MEDS ORDERED: LIDOCAINE 1% INJ-PF (10 MG/ML) 30 ML SDV INFIL ONE (10:01)
--- NOTE | 2019-08-16 10:25 | ER Document Report ---
HPI - HPI Time Seen by Provider: 08/16/19 09:50 Pain Level: 5 Notes: Patient is an otherwise healthy 34-year-old male presenting with pain and swelling to his right third digit. Patient reports he tried draining this at home without relief. Patient denies any specific injury to the area but states he is prone to getting infections around the fingernails. He denies any fevers. - CONSTITUTIONAL Constitutional: DENIES: Fever, Chills - EENT EENT: DENIES: Sore Throat, Ear Pain, Eye problems - NEURO Neurology: DENIES: Headache, Weakness, Vision blurred, Dizzinesss / Vertigo - CARDIOVASCULAR Cardiovascular: DENIES: Chest pain - RESPIRATORY Respiratory: REPORTS: Coughing. DENIES: Trouble Breathing - GASTROINTESTINAL Gastrointestinal: DENIES: Abdominal Pain, Black / Bloody Stools - URINARY Urinary: DENIES: Dysuria, Urgency, Frequency - REPRODUCTIVE Reproductive: DENIES: : - MUSCULOSKELETAL Musculoskeletal: REPORTS: Extremity pain Past Medical History - General Information source: Patient - Social History Smoking Status: Never Smoker Chew tobacco use (# tins/day): No Frequency of alcohol use: None Drug Abuse: None Family History: Reviewed & Not Pertinent Patient has suicidal ideation: No Patient has homicidal ideation: No - Past Medical History Cardiac Medical History: Reports: Hx Hypertension Renal/ Medical History: Denies: Hx Peritoneal Dialysis GI Medical History: Reports: Hx Ulcer Musculoskeletal Medical History: Reports Hx Muscle Weakness - Lateral LE, chronic in nature reports a neuromuscular disorder Traumatic Medical History: Reports: Hx Spine Fracture - L2 fracture Past Surgical History: Reports: Hx Orthopedic Surgery, Other - Movable ganglion cyst left wrist - Immunizations Hx Diphtheria, Pertussis, Tetanus Vaccination: Yes Vertical Provider Document - CONSTITUTIONAL Notes: PHYSICAL EXAMINATION: GENERAL: Well-appearing, well-nourished and in no acute distress. HEAD: Atraumatic, normocephalic. EYES: Pupils equal round extraocular movements intact, conjunctiva are normal. ENT: Nares patent NECK: Normal range of motion LUNGS: No respiratory distress Musculoskeletal: Normal range of motion NEUROLOGICAL: Normal speech, normal gait. PSYCH: Normal mood, normal affect. SKIN: Swelling, erythema and induration noted to right third digit just near the nailbed. Cap refill less than 3 seconds, normal motor and sensation. - INFECTION CONTROL TRAVEL OUTSIDE OF THE [place] IN LAST 30 DAYS: No Course - Re-evaluation Re-evalutation: Incision and drainage performed, patient tolerated well, patient will be started appropriate oral antibiotics and discharged home. Patient understands ED return precautions. The patient's emergency department workup and current diagnosis were explained to the patient and or family. Follow-up instructions were provided. Medications if prescribed were discussed. Instructions for when to return to the emergency department including specific worrisome symptoms were discussed with the patient and/or family. - Vital Signs Vital signs: Temp Pulse Resp BP Pulse Ox 98.1 F 63 14 121/74 97 08/16/19 09:38 08/16/19 09:38 08/16/19 09:38 08/16/19 09:38 08/16/19 09:38 Procedures - Incision and Drainage Right third digit Type: Simple Anesthetic type: 1% Lidocaine Blade size: 11 I&D procedure: Betadine prep applied Incision Method: Incision made by scalpel Discharge - Discharge Clinical Impression: Paronychia of finger Qualifiers: Laterality: right Qualified Code(s): L03.011 - Cellulitis of right finger Condition: Stable Disposition: HOME, SELF-CARE Additional Instructions: Paronychia You have an infection between the nail and the surrounding skin, called a paronychia. The germs infect the area after a minor skin injury, such as a hangnail. This infection is treated by releasing the pus. This is usually done by the skin from the nail. If the infection has spread underneath the nail, partial removal of the nail may be necessary. Hot-soak the area three or four times daily. Antibiotics are often given, but are not always necessary. Healing takes about a week. If pain or swelling becomes severe or if you develop fever or chills, call the doctor or return for re-examination. Prescriptions: Sulfamethoxazole/Trimethoprim [Bactrim Ds Tablet] 1 tab PO BID #14 tablet Referrals: [facility] [Primary [facility]] - Follow up as needed
== END 2019-08-16 10:33 | disposition home or self-care (01) ==
LOC: ER 09:25
DX: L03.011 Cellulitis of right finger (principal); I10 Essential (primary) hypertension
CPT/HCPCS: 10060; 99283; J3490

== ENCOUNTER 2020-11-13 09:32 | Emergency (ER) | payer OTHER ==
[2020-11-13 09:38] VITALS: BP 146/71
[2020-11-13] MEDS ORDERED: KETOROLAC TROMETHAMINE 60 MG/2 ML SDV IM ONE (10:06)
[2020-11-13] MEDS ORDERED: PREDNISONE 20 MG TABLET PO ONE (10:06)
--- NOTE | 2020-11-13 10:14 | ER Document Report ---
ED Neck/Back Problem - General Chief Complaint: Back Pain Stated Complaint: BACK PAIN [facility] [[facility] - Follow up as needed Notes: CHIEF COMPLAINT: Low back injury HPI: 35-year-old male with history of ongoing back problems which [facility] presenting for evaluation of low back injury in the shower last night. Patient bent over to wash his leg and when he went to stand back up felt something pull in the lower back. Has pain across the lower back with some radiation upwards. No incontinence of urine or bowel no tingling in the legs. ROS: See HPI - all other systems were reviewed and are otherwise negative Constitutional: no fever : no dysuria Integumentary: no rash Allergy: no hives Musculoskeletal: no extremity pain or swelling, positive back pain Neurological: no numbness/tingling, no weakness MEDICATIONS: I agree with the patient medications as charted by the RN. ALLERGIES: I agree with the allergies as charted by the RN. PAST MEDICAL HISTORY/PAST SURGICAL HISTORY: Reviewed and agree as charted by RN. SOCIAL HISTORY: Reviewed and agree as charted by RN. FAMILY HISTORY: No significant familial comorbid conditions directly related to patient complaint EXAM: Reviewed vital signs as charted by RN. CONSTITUTIONAL: Alert and oriented and responds appropriately to questions. Well-appearing; well-nourished HEAD: Normocephalic; atraumatic EYES: Conjunctivae clear, sclerae non-icteric ENT: normal nose; no rhinorrhea; moist mucous membranes NECK: Supple without meningismus; non-tender; no cervical lymphadenopathy, no masses CARD: symmetric distal pulses RESP: Normal chest excursion without splinting or tachypnea ABD/GI: Normal bowel sounds; non-distended; soft, non-tender, no rebound, no guarding; no palpable organomegaly or masses. BACK: The back appears normal and is tender to palpation in the lower lumbar region of the back, there is no CVA tenderness EXT: Normal ROM in all joints; non-tender to palpation; no cyanosis, no effusions, no edema SKIN: Normal color for age and race; warm; dry; good turgor; no acute lesions noted NEURO: Moves all extremities equally; Motor and sensory function intact. Strength equal 5/5 bilateral lower extremities. Sensation intact and equal bilateral lower extremities. Straight leg raise is negative. No saddle anesthesia on exam. DTRs 2+ intact and equal bilateral lower extremities. PSYCH: The patient's mood and manner are appropriate. Grooming and personal hygiene are appropriate. MDM: 35-year-old male low back pain after bending forward in the shower and then straightening up. Low suspicion for fracture at this time, neurologically intact. Low suspicion for cauda equina. Patient with a prior history of bulging disks and chronic back problems [facility] which [facility] W ill place patient on prednisone, anti-inflammatories, muscle relaxer short course of pain medication with return instructions TRAVEL OUTSIDE OF THE [place] IN LAST 30 DAYS: No - Related Data Allergies/Adverse Reactions: No Known Allergies Allergy (Unverified 12/07/17 14:15) Past Medical History - Social History Smoking Status: Never Smoker Chew tobacco use (# tins/day): No Frequency of alcohol use: None Drug Abuse: None Family History: Reviewed & Not Pertinent - Past Medical History Cardiac Medical History: Reports: Hx Hypertension Renal/ Medical History: Denies: Hx Peritoneal Dialysis GI Medical History: Reports: Hx Ulcer Musculoskeletal Medical History: Reports Hx Muscle Weakness - Lateral LE, chronic in nature reports a neuromuscular disorder Traumatic Medical History: Reports: Hx Spine Fracture - L2 fracture Past Surgical History: Reports: Hx Orthopedic Surgery, Hx Tonsillectomy, Other - Movable ganglion cyst left wrist - Immunizations Hx Diphtheria, Pertussis, Tetanus Vaccination: Yes Physical Exam - Vital signs Vitals: Temp Pulse Resp BP Pulse Ox 97.8 F 77 16 146/71 H 98 11/13/20 09:37 11/13/20 09:37 11/13/20 09:37 11/13/20 09:37 11/13/20 09:37 Course - Vital Signs Vital signs: Temp Pulse Resp BP Pulse Ox 97.8 F 77 16 146/71 H 98 11/13/20 09:37 11/13/20 09:37 11/13/20 09:37 11/13/20 09:37 11/13/20 09:37 - Laboratory Results Critical Laboratory Results Reviewed: No Critical Results - Radiology Results Critical Radiology Results Reviewed: No Critical Results Discharge - Discharge Clinical Impression: Acute low back pain Qualifiers: Back pain laterality: bilateral Sciatica presence: without sciatica Qualified Code(s): M54.5 - Low back pain Condition: Stable Disposition: HOME, SELF-CARE Additional Instructions: 1. Warm heat to the lower back twice daily 2. no heavy lifting for 2-3 days 3. medications as prescribed, no driving on narcotics or muscle relaxers 4. follow up with orthopedics for further evaluation and treatment as needed for any continuing pain or problems, call for appt. 5. return to the ER for any onset of incontinence of urine, fever > 101 or worsening condition Prescriptions: Hydrocodone/Acetaminophen [[place] 5-325 mg Tablet] 1 tab PO Q4HP PRN #12 tablet PRN Reason: Prednisone [Deltasone 20 mg Tablet] 2 tab PO DAILY 5 Days #10 tablet Cyclobenzaprine HCl [Flexeril 10 mg Tablet] 10 mg PO TIDP PRN #15 tab PRN Reason: Diclofenac Sodium [Voltaren 50 Mg Tablet.] 50 mg PO BID #20 tablet. [facility]errals: [facility] [[facility] - Follow up as needed
== END 2020-11-13 10:28 | disposition home or self-care (01) ==
LOC: ER 09:32
DX: M54.5 Low back pain (principal); I10 Essential (primary) hypertension
CPT/HCPCS: 99284; 96372; J1885; J7512